=== PATIENT | female | born 1985 | race Two or more races ===

== ENCOUNTER → 2018-06-12 | Outpatient (CLI) | payer OTHER | LOC: EMCIMAGING 13:13 | PROVIDERS: ATTEND Internal Medicine Pulmonary Disease | DX: M89.9 Disorder of bone, unspecified (principal); S22.32XA Fracture of one rib, left side, initial encounter for closed fracture; J45.909 Unspecified asthma, uncomplicated; J43.9 Emphysema, unspecified | CPT/HCPCS: 71250-PN ==